=== PATIENT | female | born 2000 | race Caucasian/White ===

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

== ENCOUNTER 2022-02-07 15:58 | Inpatient (IN) | payer OTHER ==
[~2022-02-07] VITALS: Ht 162.6 cm; Wt 77.1 kg
[2022-02-07] MEDS ORDERED: PRENATAL + DHA1 EAC1 PO (16:29)
[2022-02-10] MEDS ORDERED: IBUPROFEN800 MG PO (10:05)
== END 2022-02-10 11:19 | disposition home or self-care (01) | DRG 788 ==
LOC: OBS/DEL 15:58 → OB/GYN 17:34 → LDR 17:34 → OB/GYN 21:09
PROVIDERS: ADMIT Obstetrics & Gynecology; ATTEND Obstetrics & Gynecology
PROC: 4A1HXCZ Monitoring of Products of Conception, Cardiac Rate, External Approach (ICD-10-PCS; 2022-02-07)
PROC: 10D00Z1 Extraction of Products of Conception, Low, Open Approach (ICD-10-PCS; principal; 2022-02-07 18:00)
DX: O82 Encounter for cesarean delivery without indication (principal); O76 Abnormality in fetal heart rate and rhythm complicating labor and delivery; O99.820 Streptococcus B carrier state complicating pregnancy; Z3A.39 39 weeks gestation of pregnancy; Z37.0 Single live birth; Z20.822 Contact with and (suspected) exposure to COVID-19